=== PATIENT | male | born 1950 | race Caucasian/White ===

== ENCOUNTER 2019-08-21 06:53 | Outpatient (CLI) | payer SELFPAY | END 2019-08-21 23:59 | disposition home or self-care (01) | LOC: HW VAS 06:53 | DX: Z13.6 Encounter for screening for cardiovascular disorders (principal) ==

== ENCOUNTER 2022-06-06 12:11 | Emergency (ER) | payer MEDICARE, OTHER ==
[~2022-06-06] VITALS: Ht 177.8 cm; Wt 88.0 kg
[2022-06-06 12:43] LABS: BASOPHILS % (AUTO) 0.6 % (0-1); EOSINOPHILS # (AUTO) 0.2 X10'3 (0-0.9); EOSINOPHILS % (AUTO) 3.7 % (0-6); HEMATOCRIT 45.4 % (42.0-52.0); HEMOGLOBIN 15.2 g/dl (14.0-17.9); LYMPHOCYTES # (AUTO) 1.3 X10'3 (1.1-4.8); LYMPHOCYTES % (AUTO) 23.2 % (21-51); MEAN CORPUSCULAR HEMOGLOBIN 30.7 PG (27.0-31.0); MEAN CORPUSCULAR HGB CONC 33.6 g/dL (33.0-36.5); MEAN CORPUSCULAR VOLUME 91.5 FL (78-98); MONOCYTES # (AUTO) 0.5 X10'3 (0-0.9); MONOCYTES % (AUTO) 9.3 % (2-12); NEUTROPHILS # (AUTO) 3.6 X10'3 (1.8-7.7); NEUTROPHILS % (AUTO) 63.2 % (42-75); PLATELET COUNT 171 X10'3 (140-440); RED BLOOD COUNT 4.96 X10'6 (4.70-6.10); RED CELL DISTRIBUTION WIDTH 13.6 % (11.5-14.5); WHITE BLOOD COUNT 5.8 X10'3 (4.5-11.0)
[2022-06-06 12:57] LABS: APTT 34 SECONDS (22-32)
[2022-06-06 13:03] LABS: ALANINE AMINOTRANSFERASE 38 U/L (12-78); ALBUMIN 3.5 G/DL (3.4-5.0); ALBUMIN/GLOBULIN RATIO 1.3 (1.1-1.5); ALKALINE PHOSPHATASE 58 IU/L (46-116); ANION GAP 7 (8-16); ASPARTATE AMINO TRANSFERASE 27 U/L (10-37); BILIRUBIN,TOTAL 0.5 MG/DL (0.1-1.0); BLOOD UREA NITROGEN 12 MG/DL (7-18); CALCIUM 8.5 MG/DL (8.5-10.1); CHLORIDE 107 MMOL/L (99-107); GLUCOSE 129 MG/DL (70-104); POTASSIUM 3.9 MMOL/L (3.5-5.1); SODIUM 142 MMOL/L (135-145); TOTAL CARBON DIOXIDE 27.9 MMOL/L (24-32); TOTAL PROTEIN 6.3 G/DL (6.4-8.2); eGFR 73 ML/MIN
[2022-06-06] MEDS ORDERED: iohexol 350MG/ML 100ml bottle IV ONE (16:51)
--- NOTE | 2022-06-06 17:56 | NUR ---
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
--- NOTE | 2022-06-06 18:46 | NUR ---
Patient to CT
[2022-06-06] MEDS ORDERED: ASPI-1107 PO (19:40)
[2022-06-06] MEDS ORDERED: CLOP-32 PO (19:40)
--- NOTE | 2022-06-06 19:46 | NUR ---
with MD, all tests back
[2022-06-06] MEDS ORDERED: clopidogrel 75mg tablet PO ONE (19:55)
[2022-06-06 20:52] VITALS: BP 117/74
== END 2022-06-06 20:55 | disposition home or self-care (01) ==
LOC: ER 12:12
DX: I63.9 Cerebral infarction, unspecified (principal); R11.10 Vomiting, unspecified; I10 Essential (primary) hypertension; M19.90 Unspecified osteoarthritis, unspecified site
CPT/HCPCS: 36415; 70450; 70496; 70498; 70551; 71045; 80053; 82948; 85025; 85610; 85730; 93005; 93306; 93880; 99285; J3490; Q9967